=== PATIENT | female | born 1990 | race African-American/Black ===

== ENCOUNTER 2018-03-16 15:20 | Emergency (ER) | payer OTHER ==
[~2018-03-16] VITALS: Ht 157.5 cm; Wt 86.0 kg
[2018-03-16 16:09] VITALS: BP 144/101
[2018-03-16 16:34] LABS: CLARITY,URINE CLEAR (Clear); COLOR,URINE STRAW (Yellow); GLUCOSE, URINE NEGATIVE (Neg); KETONES,URINE NEGATIVE (Neg); LEUKOCYTE ESTERASE ,URINE NEGATIVE (Neg); NITRITES, URINE NEGATIVE (Neg); OCCULT BLOOD,URINE MODERATE (Neg); PROTEIN,URINE NEGATIVE (Neg); UA COLLECTION TYPE CLN CATCH MIDSTREAM; UROBILINOGEN,URINE 0.2 E.U/dL (0.2-1.0)
[2018-03-16 16:35] LABS: URINE HCG NEGATIVE (NEG)
[2018-03-16 16:41] LABS: BACTERIA,URINE NONE SEEN /HPF (Neg); MUCUS STRANDS NONE SEEN /LPF (Neg); RBC,URINE 0-2 /HPF (0-2); SQUAMOUS EPITHELIAL CELL,UR FEW /LPF (FEW); WBC,URINE NONE SEEN /HPF (0-4)
[2018-03-16] MEDS ORDERED: NITR100C6 PO (16:58)
[2018-03-16] MEDS ORDERED: PHEN-824 PO (16:58)
== END 2018-03-16 17:11 | disposition home or self-care (01) ==
LOC: ER 15:20
DX: R30.0 Dysuria (principal); Z87.440 Personal history of urinary (tract) infections
CPT/HCPCS: 81001; 81025; 99283